=== PATIENT | female | born 1990 | race Caucasian/White ===

== ENCOUNTER → 2018-05-28 | Outpatient (CLI) | payer BC | LOC: SUN.DIA 09:05 | DX: O24.419 Gestational diabetes mellitus in pregnancy, unspecified control (principal); Z3A.30 30 weeks gestation of pregnancy | CPT/HCPCS: G0108 ==

== ENCOUNTER 2018-07-01 20:53 | Outpatient (CLI) | payer BC ==
[~2018-07-01] VITALS: Ht 162.6 cm; Wt 70.5 kg
[2018-07-01] MEDS ORDERED: PRENATAL MVI (21:14)
[2018-07-01 21:15] VITALS: BP 118/71; PULSE 82; TEMP 97.8
[2018-07-01] MEDS ORDERED: FERRO-TIME325 MG PO (21:16)
== END 2018-07-01 22:34 | disposition home or self-care (01) ==
LOC: LDRO 20:53
DX: O60.03 Preterm labor without delivery, third trimester (principal); Z3A.33 33 weeks gestation of pregnancy

== ENCOUNTER → 2018-07-09 | Outpatient (CLI) | payer BC ==
[~2018-07-09] MED LIST: FERRO-TIME325 MG PO; PRENATAL MVI
== END ==
LOC: SUN.DIA 08:41
DX: O24.419 Gestational diabetes mellitus in pregnancy, unspecified control (principal); Z3A.36 36 weeks gestation of pregnancy
CPT/HCPCS: G0108

== ENCOUNTER 2018-08-12 22:53 | Outpatient (CLI) | payer BC ==
[~2018-08-12] VITALS: Ht 162.6 cm; Wt 72.7 kg
--- NOTE | 2018-08-12 23:00 | NUR ---
HERE WITH SPOUSE FOR SECOND LABOR CHECK TODAY. STATES PAIN IS WORSENING AND IN BACK NOW. JESSICA FT/60/-2. EFM
[2018-08-12 23:30] VITALS: BP 137/81; PULSE 70; TEMP 98
== END 2018-08-12 23:58 | disposition home or self-care (01) ==
LOC: LDRO 22:53
DX: O26.893 Other specified pregnancy related conditions, third trimester (principal); Z3A.39 39 weeks gestation of pregnancy

== ENCOUNTER → 2018-08-12 | Outpatient (CLI) | payer BC ==
[~2018-08-12] VITALS: Ht 162.6 cm; Wt 72.7 kg
[~2018-08-12] MED LIST changes: +FOLIC ACID 11 MG/TA1 PO; +OSCAL 500 TAB500 MG PO
--- NOTE | 2018-08-12 17:30 | NUR ---
Dr. Aguayo notified of pt status and SVE. Orders to depart.
[2018-08-12 17:40] VITALS: BP 125/77; PULSE 71; TEMP 97.7
--- NOTE | 2018-08-12 23:00 | NUR ---
HERE NOW WITH SPOUSE AFTER EARLIER VISIT FOR LABOR CHECK TODAY AT 1700. STATES IS HAVING WORSENING REGULAR BACK PAIN AND CANT SLEEP. HERE FOR CERVICAL EXAM. BABY MOVEING. EFM ON SVE / -2
== END ==
LOC: LDRO 17:10
DX: O62.9 Abnormality of forces of labor, unspecified (principal); Z3A.39 39 weeks gestation of pregnancy

== ENCOUNTER 2018-08-13 09:49 | Outpatient (CLI) | payer BC ==
[~2018-08-13] VITALS: Ht 162.6 cm; Wt 72.7 kg
--- NOTE | 2018-08-13 10:00 | NUR ---
Pt arrives on unit ambulatory with spouse. Changed into a clean gown. EFM and toco applied. VSS. SVE per this RN /-2. Pt states her contractions have gotten stronger since 0000. Tylenol and benadryl have been taken for pain. Pt states a warm bath was taken for 3 hours early this morning and didn't relive the pain. Per pt, "I don't think I can get through these contractions if I wait until my induction Saturday. I have slept 4 hours in the past two days." Dr. Hook notified of pt status. Orders to observe pt for 1 hour and recheck SVE. Pt ok to ambulate once reactive NST is obtained. 1017-Pt taken off monitors. Up to ambulate.
[2018-08-13 10:17] VITALS: BP 114/70; PULSE 73; TEMP 98
--- NOTE | 2018-08-13 11:15 | NUR ---
SVE per this RN unchanged. Dr. Hook notified. Orders to have pt return tomorrow night for Cervidil induction. Pt agrees to plan of care. Taken off monitors. Discharge instructions given. No questions or concerns. Leaves unit ambulatory.
[2018-08-13 11:34] VITALS: BP 120/72; PULSE 75
[2018-08-15] MEDS ORDERED: IBU600 MG PO (10:04)
== END 2018-08-13 11:40 | disposition home or self-care (01) ==
LOC: LDRO 09:49 → LDR 10:12 → LDRO 10:12 → LDR 11:40
DX: O62.9 Abnormality of forces of labor, unspecified (principal); Z3A.39 39 weeks gestation of pregnancy

== ENCOUNTER 2018-12-26 14:41 | Emergency (ER) | payer OTHER, BC ==
[~2018-12-26] VITALS: Ht 165.1 cm; Wt 54.5 kg
[~2018-12-26 14:41] MED LIST changes: +IBU600 MG PO
[2018-12-26 14:55] VITALS: BP 115/85
[2018-12-26] MEDS ORDERED: CAMILA0.35 MG PO (15:39)
[2018-12-26] MEDS ORDERED: LEXAPRO 10MG10 MG PO (15:39)
[2018-12-26] MEDS ORDERED: FLEXERIL 1010 MG/TAB PO (16:54)
[2018-12-26] MEDS ORDERED: LIDODERM 5% PATC1 EA TP (17:12)
[2018-12-26 17:21] VITALS: PULSE 63; TEMP 98.7
== END 2018-12-26 17:26 | disposition home or self-care (01) ==
LOC: COL.ER 14:41
DX: S16.1XXA Strain of muscle, fascia and tendon at neck level, initial encounter (principal); S80.02XA Contusion of left knee, initial encounter; Z88.0 Allergy status to penicillin; Z88.8 Allergy status to other drugs, medicaments and biological substances; V43.52XA Car driver injured in collision with other type car in traffic accident, initial encounter
CPT/HCPCS: J1885

== ENCOUNTER 2022-03-24 09:24 | Emergency (ER) | payer BC ==
[~2022-03-24] VITALS: Ht 162.6 cm; Wt 59.1 kg
[~2022-03-24 09:24] MED LIST changes: +CAMILA0.35 MG PO; +FLEXERIL 1010 MG/TAB PO; +LEXAPRO 10MG10 MG PO; +LIDODERM 5% PATC1 EA TP
[2022-03-24 09:31] VITALS: TEMP 97.6
[2022-03-24 09:55] LABS: BASO % 0.3 % (0.0-2.0); EOS # 0.1 K/mm3 (0.0-0.7); EOS % 1.2 % (0.0-4.0); GRAN # 6.9 K/mm3 (1.4-6.5); GRAN % 77.3 % (42.2-75.2); HEMATOCRIT 37.3 % (37.0-47.0); HEMOGLOBIN 13.1 g/dl (12.5-16.0); LYMPH # 1.3 K/mm3 (1.2-3.4); LYMPH % 14.4 % (20.0-51.0); MEAN CELL VOLUME 89 fl (80.0-100.0); MEAN CORPUSCULAR HEMOGLOBIN 31 pg (27-31); MEAN CORPUSCULAR HGB CONC 35 g/dl (33.0-37.0); MEAN PLATELET VOLUME 10.4 fl (7.4-10.4); MONO # 0.6 K/mm3 (0.1-0.6); MONO % 6.5 % (1.7-9.3); PLATELET COUNT 215 K/mm3 (130-400); REDCELL DISTRIBUTION WIDTH-CV 11.5 % (11.5-14.5)
[2022-03-24 10:15] LABS: BILIRUBIN,TOTAL 1.4 mg/dL (0.2-1.2); CREATININE, serum 0.82 mg/dL (0.57-1.11); POTASSIUM 3.4 mmol/L (3.5-4.5); TOTAL PROTEIN 7.6 gm/dL (6.2-8.1)
[2022-03-24] MEDS ORDERED: PERCOCET 325 MG1 TA2 PO (12:00)
[2022-03-24 12:15] VITALS: BP 93/62; PULSE 58
== END 2022-03-24 12:15 | disposition home or self-care (01) ==
LOC: COL.ER 09:24
PROVIDERS: Personal Emergency Response Attendant
DX: S09.90XA Unspecified injury of head, initial encounter (principal); S29.9XXA Unspecified injury of thorax, initial encounter; V80.010A Animal-rider injured by fall from or being thrown from horse in noncollision accident, initial encounter; Y93.52 Activity, horseback riding

== ENCOUNTER → 2022-10-24 | Outpatient (CLI) | payer BC ==
[~2022-10-24] MED LIST changes: +NORCO 325 MG-51 TAB PO; +PERCOCET 325 MG1 TA2 PO; +ZOFRAN ODT4 MG PO
== END ==
LOC: COL.RAD 10:29
DX: R91.1 Solitary pulmonary nodule (principal)
CPT/HCPCS: Q9967

== ENCOUNTER 2023-08-27 00:49 | Inpatient (IN) | payer BC ==
[~2023-08-27] VITALS: Ht 165.1 cm; Wt 73.5 kg
[2023-08-27] VITALS (34 sets, daily range): BP systolic 94–140; BP diastolic 51–76; PULSE 60–93; TEMP 97.5–97.9
[~2023-08-27 00:49] MED LIST changes: +VITAMIN B-625 MG PO
--- NOTE | 2023-08-27 01:00 | NUR ---
0050: Pt arrives via wheelchair to room, accompanied by staff. Instructed to change into a gown. 0100: I enter room, introduce myself to pt and begin obtaining hx and current complaint. Pt reports she had ctx that woke her up at 2345, that were more intense in strength and discomfort. She reports having approx 5 ctx from that time until 0030 when she decided to come in to be evaluated. Monitors placed on pt, vitals obtained, and plan of care discussed with pt. Pt denies LOF, VB and reports good movement. 0108: SVE /-1. Pt informed I would call the Dr on-call and get admission orders. Pt verbalizes understanding and will let her know as well.
[2023-08-27] MEDS ORDERED: LR 1,000 ML IV SCH (01:30)
[2023-08-27] MEDS ORDERED: ROPivacaine PF 0.2% 200 ML IV ONE (01:39)
[2023-08-27 01:45] LABS: BASO % 0.4 % (0.0-2.0); EOS # 0.1 K/mm3 (0.0-0.7); EOS % 1.3 % (0.0-4.0); GRAN # 4.8 K/mm3 (1.4-6.5); HEMOGLOBIN 11.6 g/dl (12.5-16.0); MEAN CELL VOLUME 90 fl (80.0-100.0); MEAN CORPUSCULAR HEMOGLOBIN 30 pg (27-31); MEAN CORPUSCULAR HGB CONC 34 g/dl (33.0-37.0); MEAN PLATELET VOLUME 11.9 fl (7.4-10.4); MONO # 0.9 K/mm3 (0.1-0.6); MONO % 11.8 % (1.7-9.3); PLATELET COUNT 146 K/mm3 (130-400); RED BLOOD COUNT 3.82 M/mm3 (4.10-5.30); REDCELL DISTRIBUTION WIDTH-CV 13.5 % (11.5-14.5)
[2023-08-27 01:56] LABS: HEMATOCRIT 34.3 % (37.0-47.0)
[2023-08-27] MEDS ORDERED: diphenhydrAMINE 25 MG CAP PO PRN (02:15)
[2023-08-27] MEDS ORDERED: Ondansetron 4 MG/2 ML VIAL IV PRN (02:15)
[2023-08-27] MEDS ORDERED: diphenhydrAMINE 50 MG/ML 1 ML VIAL IV PRN (02:15)
[2023-08-27] MEDS ORDERED: Naloxone 0.4 MG/ML VIAL IV PRN ×2 (02:15→08:30)
[2023-08-27] MEDS ORDERED: ePHEDrine 50 MG/10 ML VIAL IV PRN (02:15)
--- NOTE | 2023-08-27 04:00 | NUR ---
RN observes one late decel and one variable decel on this tracing. Pt repositioned slightly with improvement. RN monitoring status.
--- NOTE | 2023-08-27 04:30 | NUR ---
Late decel noted on this strip, pt repositioned and good recovery noted. Pt comfortable with her epidural.
--- NOTE | 2023-08-27 05:30 | NUR ---
0525: Pt calls and informs this RN that she believes her water just ruptured. I enter room to examine pt and observe large amount of meconium fluid on the bed pad. I obtain consent from the pt to do a cervical exam. 0527: BECKYE //-1, another large amount of fluid leaks out as exam is completed. Pt cleaned up, sheets and bed pad changed.
[2023-08-27] MEDS ORDERED: LR & Oxytocin 500 ML IV SCH (06:15)
--- NOTE | 2023-08-27 08:11 | NUR ---
0804- Pt begins pushing with UC. This RN remains at bedside. Bridgett, nursery RN at bedside. 0808- Dr Phillips and Giselle, RN at bedside. Pt and room prepped for delievery. 0811- of viable male , tended to by nursery RN. 0815- Spont. delivery of placenta. Pitocin started per protocol. Fundus massaged to firm by . After repair completed, pericare completed, chux changed and ice pack to perineum.
[2023-08-27] MEDS ORDERED: Loratadine 10 MG TAB PO PRN (08:30)
[2023-08-27] MEDS ORDERED: Magnes Hydrox (MOM) 80 MG/ML 30 ML CUP PO PRN (08:30)
[2023-08-27] MEDS ORDERED: Ibuprofen 800 MG TAB PO SCH (08:30)
[2023-08-27] MEDS ORDERED: Witch Hazel 50% Pads Bulk TUB TP PRN (08:30)
[2023-08-27] MEDS ORDERED: Acetaminophen 500 MG TAB PO SCH (08:30)
[2023-08-27] MEDS ORDERED: Measles/Mumps/Rubella Virus Vaccine Live w Diluent 0.5 ML VIAL SQ SCH (08:30)
[2023-08-27] MEDS ORDERED: Phenylephrine/Mineral Oil/Petrolatum 57 GM TUBE RC PRN (08:30)
[2023-08-27] MEDS ORDERED: Mag/Al Hydrox/Simeth Susp 30 ML CUP PO PRN (08:30)
--- NOTE | 2023-08-27 08:30 | NUR ---
MD forgot to look at drape after delivery, EBL per Dr Phillips 150.
--- NOTE | 2023-08-27 14:45 | NUR ---
PATIENT REQUESTING TO VOID, THIS RN ASSISTS PATIENT TO RESTROOM VIA ROWENA STEADY, PATIENT VOIDS AND PERFROMS PERICARE. PATIENT ASSISTED BACK TO BED VIA ROWENA STEADY, PATIENT VERBALIZES UNDERSTANDING TO CALL BEFORE NEXT VOID FOR HELP TO RESTROOM.
[2023-08-27] MEDS ORDERED: Rho(D) Imm Globulin 1,500 UNITS (300 MCG)/2 ML SYRINGE IV\\IM SCH (15:00)
[2023-08-27] MEDS ORDERED: Sennosides/Docusate 8.6-50 MG TAB PO SCH (17:00)
--- NOTE | 2023-08-27 20:55 | NUR ---
PATIENT REPORTS TO THIS RN THAT PRE- AND DURING SHE WAS TAKING LEXAPRO 20 MG PO DAILY. 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 PT REPORTS THAT SHE HAD 1 POSITIVE TEST AND 4 NEGATIVE TESTS. PT WOULD LIKE TO KNOW IF SHE NEEDS TO CONTINUE THE ACYCLOVIR AND IF SHE CAN CONTINUE TO TAKE THE LEXAPRO. DR. URIARTE NOTIFIED BY THIS RN AND REPORTED THE FINDINGS TO THE PROVIDER. DR. URIARTE GAVE THE FOLLOWING VERBAL PHONE READBACK ORDER: 1. PLACE AN ORDER FOR 20 MG LEXAPRO PO TO BE GIVEN ONCE NOW, AND PLACE A SECOND ORDER FOR LEXAPRO 20 MG PO TO BEGIN DAILY TOMORROW. 2. ACYCLOVIR PO DOES NOT NEED TO BE CONTIUED AT THIS TIME. ORDERS PLACED PER PROVIDER AND PT UPDATED ON POC.
[2023-08-27] MEDS ORDERED: traZODone 50 MG TAB PO PRN (21:00)
[2023-08-27] MEDS ORDERED: Escitalopram 10 MG TAB PO ONE (21:15)
[2023-08-28 00:30] VITALS: BP 108/61; PULSE 68; TEMP 98.1
[2023-08-28 05:30] VITALS: BP 104/61; PULSE 66; TEMP 97.9
[2023-08-28 09:00] VITALS: BP 102/62; PULSE 82; TEMP 97.9
[2023-08-28] MEDS ORDERED: Escitalopram 10 MG TAB PO SCH (09:00)
--- NOTE | 2023-08-28 09:30 | NUR ---
Initial visit; Patient thanked Civil Engineer'S Aide for offering congratulations and God's blessings for the of her son. Civil Engineer'S Aide visited with patient about her family and thanked her for choosing [facility]
[2023-08-28 21:25] VITALS: BP 109/66; PULSE 79; TEMP 97.6
[2023-08-29 06:50] VITALS: BP 105/70; PULSE 80; TEMP 98
--- NOTE | 2023-08-29 13:09 | NUR ---
Initial visit; Patient thanked Sand Bobber for offering congratulations and God's blessings for the of her son. Sand Bobber thanked Melany for choosing our hospital and inquired how her experience has been here. Melany says she is doing well and has had a good experience here at [facility]. wished family well.
== END 2023-08-29 17:15 | disposition home or self-care (01) | DRG 806 ==
LOC: LDRO 00:49 → LDR 01:19 → OB 11:40
PROVIDERS: Obstetrics & Gynecology; ADMIT Pediatrics Adolescent Medicine
PROC: 10E0XZZ Delivery of Products of Conception, External Approach (ICD-10-PCS; principal; 2023-08-27)
PROC: 0KQM0ZZ Repair Perineum Muscle, Open Approach (ICD-10-PCS; 2023-08-27)
PROC: 0U7C7ZZ Dilation of Cervix, Via Natural or Artificial Opening (ICD-10-PCS; 2023-08-27)
PROC: 3E0234Z Introduction of Serum, Toxoid and Vaccine into Muscle, Percutaneous Approach (ICD-10-PCS; 2023-08-28)
DX: O24.420 Gestational diabetes mellitus in childbirth, diet controlled (principal); O98.32 Other infections with a predominantly sexual mode of transmission complicating childbirth; Z37.0 Single live birth; O70.1 Second degree perineal laceration during delivery; O26.899 Other specified pregnancy related conditions, unspecified trimester; O77.0 Labor and delivery complicated by meconium in amniotic fluid; O99.52 Diseases of the respiratory system complicating childbirth; J45.909 Unspecified asthma, uncomplicated; O36.63X0 Maternal care for excessive fetal growth, third trimester, not applicable or unspecified; O99.344 Other mental disorders complicating childbirth; F41.9 Anxiety disorder, unspecified; A60.09 Herpesviral infection of other urogenital tract; Z3A.38 38 weeks gestation of pregnancy
CPT/HCPCS: J2590; J2791; J2795; J7120